=== PATIENT | male | born 1950 | race Caucasian/White ===

== ENCOUNTER 2025-09-02 06:10 | Day surgery (SDC) | payer MEDICARE, SELFPAY ==
[2025-09-02 13:41] VITALS: BMI 21.2
[2025-09-02 13:42] VITALS: BP 128/77; BMI 21.2
[2025-09-02 13:45] VITALS: BMI 21.2
[2025-09-02 14:56] VITALS: BP 123/65
[2025-09-02 15:00] VITALS: BP 127/71
[2025-09-02 15:12] VITALS: BP 116/71
[2025-09-02 15:20] VITALS: BP 112/72
== END 2025-09-02 15:25 | disposition home or self-care (01) ==
LOC: SDS 06:10
PROVIDERS: ATTENDING PHYSICIAN Internal Medicine Gastroenterology
DX: Z12.11 Encounter for screening for malignant neoplasm of colon (principal); K51.50 Left sided colitis without complications; K57.30 Diverticulosis of large intestine without perforation or abscess without bleeding; K64.8 Other hemorrhoids
CPT/HCPCS: 45380; 88305